=== PATIENT | female | born 1965 | race Two or more races ===

== ENCOUNTER 2017-11-12 19:00 | Emergency (ER) | payer OTHER ==
[2017-11-12] MEDS: predniSONE 20 MG TABLET PO (19:39)
[2017-11-12] MEDS: HYDROcodone/APAP 5/325MG 1 TAB TABLET PO (19:39)
[2017-11-12] MEDS: NAPROXEN 500 MG TABLET PO (19:39)
== END 2017-11-12 20:13 | disposition home or self-care (01) ==
LOC: ER 19:00
DX: M17.12 Unilateral primary osteoarthritis, left knee (principal); G89.29 Other chronic pain
CPT/HCPCS: 73562; 99284; J7512

== ENCOUNTER → 2021-08-05 | Outpatient (CLI) | payer OTHER ==
[2017-11-12 19:17] VITALS: BP 121/65
[~2021-08-05] MED LIST: DICL100G54 TP; DICL50TA4 PO; METH4TAB2 PO
--- NOTE | 2021-08-05 16:41 | CARD ---
MR#: [id number] Date of Study: 08/05/2021 Ordering Physician: ALANIS LOMELI, Referring Physician: ALANIS LOMELI, Tech: Mague Tong, [facility] APPROVED REPORT EXAM: Two-dimensional and M-mode echocardiogram with Doppler and color Doppler. Other Information Quality : FairHR: 77bpm Technically limited study due to body habitus. INDICATION Dyspnea RISK FACTORS Hypertension Asthma 2D DIMENSIONS Left Atrium(2D)2.8 (1.6-4.0cm)IVSd1.1 (0.7-1.1cm) Aortic Root(2D)2.9 (2.0-3.7cm)LVDd5.1 (3.9-5.9cm) LVOT Diameter2.1 (1.8-2.4cm)PWd1.2 (0.7-1.1cm) LVDs3.2 (2.5-4.0cm)FS (%) 37.7 % SV82.5 mlLVEF(%)67.5 (>50%) Aortic Valve AoV Peak Marc.154.5cm/sAoV VTI31.0cm AO Peak GR.9.6mmHgLVOT Peak Marc.138.8cm/s LVOT VTI 31.17cmAO Mean GR.5mmHg RAPHAEL (VMAX)2.28pn6ZUS (VTI)3.48cm2 Mitral Valve MV E Rkzflney443.5cm/sMV DECEL BGAB025tl MV A Jzddurin49.2cm/sMV E Mean Gr.3mmHg MV YQZ11isS/A Ratio1.1 MVA (PHT)3.64cm2 TDI E/Lateral E'14.0E/Medial E'12.8 Pulmonary Valve PV Peak Gbrlycqa344.9cm/sPV Peak Grad.4mmHg Tricuspid Valve TR P. Frrzzzcn323qa/sRAP DAKVSYLT6gpTh TR Peak Gr.14oeUdJUST11qrUn Pulmonary Vein S1 Ltxgjqfy40.2cm/sD2 Jjnjuzcc68.5cm/s PVa [id number] LEFT VENTRICLE The left ventricle is normal size. There is mild concentric left ventricular hypertrophy. The left ve ntricular systolic function is normal. The Ejection Fraction is 55-60%. There is normal LV segmental wall motion. RIGHT VENTRICLE The right ventricle is normal size. There is normal right ventricular wall thickness. The right ventr icular systolic function is normal. ATRIA The left atrium size is normal. The right atrium is borderline dilated. The interatrial septum is int act with no evidence for an atrial septal defect or patent foramen ovale as noted on 2-D or Doppler i maging. AORTIC VALVE The aortic valve is normal in structure and function. Doppler and Color Flow revealed trace aortic re gurgitation. There is no significant aortic valvular stenosis. Calculated aortic valve area is cm2 wi th maximum pressure gradient of 11 mmHg and mean pressure gradient of 6 mmHg. MITRAL VALVE The mitral valve is normal in structure and function. There is no evidence of mitral valve prolapse. There is no mitral valve stenosis. Doppler and Color-flow revealed trace mitral regurgitation. TRICUSPID VALVE The tricuspid valve is not well visualized. Doppler and Color Flow revealed trace tricuspid regurgita tion with an estimated PAP of 29 mmHg. There is no tricuspid valve stenosis. PULMONIC VALVE The pulmonary valve is normal in structure and function. Doppler and Color Flow revealed trace pulmon ic valvular regurgitation. GREAT VESSELS The aortic root is normal in size. The IVC is normal in size and collapses >50% with inspiration. PERICARDIAL EFFUSION There is no evidence of significant pericardial effusion. Critical Notification Critical Value: No <Conclusion> The left ventricular systolic function is normal. The Ejection Fraction is 55-60%. There is normal LV segmental wall motion. Trace mitral regurgitation. Trace tricuspid regurgitation with an estimated PAP of 29 mmHg. There is no evidence of significant pericardial effusion. Signed by : Wilner Resendiz, Electronically Approved : 08/05/2021 16:41:13
== END ==
LOC: ECHO 14:39
PROVIDERS: ATTEND Internal Medicine Cardiovascular Disease
DX: I51.7 Cardiomegaly (principal); R06.02 Shortness of breath; R06.00 Dyspnea, unspecified
CPT/HCPCS: 93306; C8929